=== PATIENT | female | born 1955 ===

== ENCOUNTER 2025-06-03 12:19 | Outpatient (AMB) | payer OTHER, SELFPAY ==
--- NOTE | 2025-06-03 12:50 | MHC.OFFVIS ---
Intake Visit Reasons: CIDP Allergies Penicillins Allergy (Unknown, Verified 05/13/25 09:09) Unknown Medication List - Last Reconciled 06/03/25 by Juan Carlos Robbins MD hydrochlorothiazide 25 mg PO DAILY prednisone 40 mg (2 x 20 mg) PO DAILY 30 days HPI Comments Details: No change in paresthesia and numbness after 4 months of Prednisone 40mg daily. Not impaired functionally. Daughters feel that her hands are stronger. Numbness has not changed. Some facial sensations have improved. Her sx started in Jun 2024 while?using a tractor for mulching leaves in her yard in early June 2024 and needed to over-reach?for the accelerator and had to hyperextend her right foot, and as she did that, she felt a bolt of electricity traveling from the foot all the way up her spine.? She was fine after that, but the next day she noticed that both her hands went numb and tingly with worsening of symptoms?over the next week. There was increasing numbness and tingling in both hands and all fingers,? weakness in the hands and burning sensation.? She also had some numbness and tingling in the bottoms of her feet, but the hand symptoms were more significant.? She called her PCP and was told to take arthritis medicines for a few days, which did not help.? She then went and saw the PCP who diagnosed her with carpal tunnel syndrome and referred her to the hand surgeon, , who sent her for nerve conduction studies that were done on 07/07/24. She was told she had extreme carpal tunnel syndrome and cubital tunnel syndrome bilaterally.? That report is not available at this time.? She also had an MRI of the brain which was unremarkable except for some nonspecific white matter hyperintensities.? On August 21, 2024,? she had a right carpal tunnel release and right ulnar nerve transposition.? Her symptoms have not improved at all.? The symptoms in the left hand continue and the numbness in the feet has moved up almost to the knees.? She also gets some vibratory sensation transiently going through both breasts. Some numbness in also felt in her lips and mouth and tip of nos eand some facial pain. Neck movement doesn't trigger any symptoms.? She's found it harder to walk and feels that her balance is impaired.? She is unsteady on her feet but has not fallen.? There's no history of neck injuries or previous neurological symptoms.? She had been taking B complex vitamin daily prior to onset of the symptoms.? She has no bladder and bowel control problems. [facility] Medical History (Updated 06/03/25 @ 12:55 by Juan Carlos Robbins MD) CIDP (chronic inflammatory demyelinating polyneuropathy) History of high blood pressure Review of Systems Const Details: ?Sleep:? Difficulty getting to sleepdenies.? Difficulty maintaining sleepdenies?.? Urge to move legsdenies.? Teeth grindingdenies.? Shouting or Kicking during sleepdenies.? Abnormal behavior during sleepdenies.? Excessive sleepdenies.? Snoringdenies.? Daytime sleepinessdenies. ???General/Constitutional:? Change in appetitedenies.? Chillsdenies.? Fatiguedenies.? Feverdenies.? Weight gaindenies.? Weight lossdenies. ???Ophthalmologic:? Blurred visiondenies.? Diminished visual acuitydenies. ???ENT:? Stuffinessdenies.? Decreased hearingdenies.? Dry mouthdenies.? Ear paindenies.? Nosebleeddenies.? Ringing in the earsdenies.? Sinus paindenies.? Sore throatdenies.? Swollen glandsdenies. ???Endocrine:? Cold intolerancedenies.? Excessive thirstdenies.? Frequent urinationdenies.? Heat intolerancedenies. ???Respiratory:? Shortness of breathdenies.? Chest paindenies.? Coughdenies. ???Breast:? Breast lumpdenies.? Nipple dischargedenies. ???Cardiovascular:? Chest pain at restdenies.? Chest pain with exertiondenies.? Claudicationdenies.? Dizzinessdenies.? Fluid accumulation in the legsdenies.? Irregular heartbeatdenies.? Palpitationsdenies. ???Gastrointestinal:? Abdominal paindenies.? Constipationdenies.? Diarrheadenies.? Difficulty swallowingdenies.? Heartburndenies.? Nauseadenies.? Rectal bleedingdenies. ???Hematology:? Easy bruisingdenies.? Prolonged bleedingdenies. ???Genitourinary:? Frequent urinationdenies.? Urgencydenies.? Incontinencedenies.? Erectile Dysfunctiondenies. ???Musculoskeletal:? Neck paindenies.? Back paindenies.? Muscle achesdenies.? Painful jointsdenies.? Sciaticadenies.? Weaknessdenies. ???Podiatric:? Difficulty walkingdenies.? Foot numbnessdenies. ???Neurologic:? Difficulty swallowingdenies.? Balance difficultyadmits.? Coordinationnormal.? Difficulty speakingdenies.? Dizzinessdenies.? Faintingdenies.? Gait abnormalityadmits.? Headachedenies.? Loss of strengthdenies.? Loss of use of extremitydenies.? Low back paindenies.? Memory lossdenies.? Seizuresdenies.? Ticsdenies.? Tingling/Numbnessadmits.? Transient loss of visiondenies.? Tremordenies. ???Psychiatric:? Anxietydenies.? Auditory/visual hallucinationsdenies.? Delusionsdenies.? Depressed mooddenies.? Stressorsdenies.? Substance abusedenies.? Suicidal thoughtsdenies. Physical Exam Neuro Other: Neurological: Abnormal neurological findings:??mild weakness in both deltoids graded at 5 minus/5.? Minimal weakness in abductor pollicis brevis on the right.? Well healed scar of carpal tunnel release and ulnar nerve transposition on the right.? Normal strength in the lower extremities.? Reflexes are absent throughout except for 1+ triceps reflex.? There is impaired vibration sensation in the hands and the feet particularly in the left lower extremity all the way up to the patella.? Position sense is impaired in the feet as well.? Pinprick and temperature sensation is preserved.? There is a mildly positive Romberg sign.? She walks with a broad-based gait looking slightly unsteady.? Plantar responses are flexor.?Mental Status:??alert and oriented X 3,?Normal attention, orientation, memory and affect.?Cranial Nerves:??Pupils are equal, round and reactive to light. Fundoscopy shows normal disc bilaterally. External occular muscles are intact. Visual mcacrthy are full, no ptosis. Face is symmetrical, no facial weakness or droop. Facial sensations are normal. Tongue protrudes in midline. Palate elevates symmetrically. Shoulder shrugging is normal..?Motor Examination:??Normal muscle tone, bulk and strength,?No atrophy or fasciculations,?No drift of the extended upper extremities,?Deep tendon reflexes are 2+?,?Plantars are flexor?.?Motor Strength:?Proximal Muscles (out of 5):5Distal Muscles (out of 5):5Neck Flexors (out of 5):5Neck Extensors (out of 5):5Deltoid (out of 5):5Biceps (out of 5):5Triceps (out of 5):5Serratus Anterior (out of 5):5Wrist Extensors (out of 5):5APB (out of 5):5Finger Spread (out of 5):5Ileopsoas (out of 5):5Quadriceps (out of 5):5Hamstrings (out of 5):5Tibialis Anterior (out of 5):5Peronei (out of 5):5EDB (out of 5):5Gastrocnemius (out of 5):5Straight Leg Raising:??90 degrees.?Sensory Exam:??Normal light touch, temperature, pinprick, vibration and joint-position sensations?,?Rhomberg sign is absent.?Coordination:??no ataxia,?no titubation,?wpqstq-zy-nrov, dptq-hajo-hill test and rapid alternating movements were normal.?Gait Exam:??Within normal limits.?Cerebellar Signs:??Ziuygl-bh-eufe and zmjc-xp-ouaz is normal,?no dysdiadochokinesia?.?Extrapyramidal System:??No tremor, rigidity with normal facial expressions,?No bradykinesia, no bradyphrenia. Normal arm swing and posture. No propulsion or retropulsion.?Speech:??Normal,?no dysphasia or dysarthria..? Mini Mental Status Exam: Level of Consciousness:??Alert.?Orientation:??Knows correct year, month, date, day and season,?Knows correct city, county and state. Knows correct location and floor.?Registration:??Able to register 3 objects.?Attention:??Serial 7's performed accurately.?Recall:??Able to recall 3 out of 3 objects.?Language:??Normal spontaneous speech, fluency, repetition,naming, comprehension, reading and writing.?Total Score:??30/30.? General Examination: GENERAL APPEARANCE:??normal,?in no acute distress.?HEAD:??normocephalic,?atraumatic.?EYES:??sclera non-icteric,?conjunctiva clear.?EARS:??auditory canal clear,?tympanic membrane intact, clear.?NOSE:??no lesions.?ORAL CAVITY:??gums normal,?mucosa moist,?no lesions.?THROAT:??clear.?NECK/THYROID:??no cervical lymphadenopathy,?thyroid normal,?neck supple, full range of motion,?no carotid bruit.?SKIN:??no rashes,?no significant birthmarks.?HEART:??S1, S2 normal,?no murmurs.?LUNGS:??clear anteriorly and posteriorly.?CHEST:??no gross rib deformity,?clear to auscultation.?BACK:??normal exam of spine.?EXTREMITIES:??no edema.?PERIPHERAL PULSES:??normal.?PSYCH:??alert, oriented,?cognitive function intact,?cooperative with exam.? Assessment & Plan Assessment & Plan (1) CIDP (chronic inflammatory demyelinating polyneuropathy): Comment: rule out B12 deficiency with peripheral neuropathy and subacute combined degeneration as well as conditions affecting posterior columns 01/13/25 NCV/EMG ALL Severe diffuse axonal and demyelinating neuropathy in the upper and lower extremities. EMG in the left C5-T1 and left L4-S1 innervated muscles is consistent with neuropathic changes. Labs normal. Code(s): G61.81 - Chronic inflammatory demyelinating polyneuritis Category: Medical (2) Cervical myelopathy: Comment: MRI brain and C spine were reviewed. Tight spinal canal at C5-6 without abnormal cord signal. Bilateral foraminal encroachment. Non specific white matter changes - microvacsular versus mild MS Code(s): G95.9 - Disease of spinal cord, unspecified Category: Medical (3) Peripheral neuropathy: Code(s): G62.9 - Polyneuropathy, unspecified Category: Medical Plan Continue Prednisone 40mg for 2 more months. Start IVIG 30gm daily for 4 days every month for 6 months. Medications: New immun glob [id number]-IgA 0-50 10 gram (Gammagard S-D (IgA < 1 mcg/mL)) to be infused 4 days monthly at same dose for 6 months 30 grams IV DAILY CIDP 4 days Refilled prednisone 40 mg (2 x 20 mg) PO DAILY 60 tabs 3RF 30 days Coding Level of Care Code Est Pt Level 4 (17602) Diagnoses CIDP (chronic inflammatory demyelinating polyneuropathy) G61.81 Cervical myelopathy G95.9 Peripheral neuropathy G62.9
--- OUTSIDE RECORDS SUMMARY | 2025-06-03 15:42 | XMS_ITS | Clinical Summary ---
Author Organization [facility] Address [address] [place] [address] Care Team Providers Care Woods Laborer Name Role Phone Dario Welch MD Primary Care Provider [phone] Immunizations Name Administration Dates Next Due Covid-19 (Pfizer) Dilution Required 05/27/2021,0 08/19/2020,07/29/2020 Social History Tobacco Use Types Packs/Day Years Used Date Smoking Tobacco: Never Assessed Sex and Gender Information Value Date Recorded Sex Assigned at Female 07/29/2020 9:48 AM EST Gender Identity Not on file Sexual Orientation Not on file Job Start Date Occupation Industry Not on file Not on file Not on file Plan of Treatment Health Maintenance Due Date Last Done Comments Hepatitis C Screening 1955 Depression Screening 1966 Preventative Health Evaluation 1972 DTap / Tdap / Td (1 - Tdap) 1973 Colon Cancer Screening (Colonoscopy) 1999 Breast Cancer Screening (Mammogram) 2004 Shingrix-Zoster Vaccine (1 o f 2) 2004 Fall Risk Assessment 2019 Osteoporosis Screening (DEXA Scan) 2019 Pneumococcal Vaccine (1 of 1 - PCV) 2019 COVID-19 Vaccine ( - 2024-2 6 season) 2025 05/27/2021, 08/19/2020, 07/29/2020 Influenza Vaccine (#1) 2025 RSV Adult > 60+ Yrs or (1 - 1-dose 75+ series) 2029 Hepatitis B Vaccines Aged Out No long er eligible based on patient's age to complete this topic RSV Ped < 20 months Aged Out No longe r eligible based on patient's age to complete this topic Care Teams Woods Laborer Relationship Specialty Start Date End Date Dario Welch MD [address] [facility] [address] [place] [address] PCP - General Lead Manufacturing Technician 05/25/15
--- OUTSIDE RECORDS SUMMARY | 2025-06-03 15:42 | XMS_ITS | Clinical Summary ---
Author [facility] Address [address] [place] [address] Care Team Providers Care Watch Technician Name Role Phone Dario Welch MD Primary Care Provider Unava ilable Social History Tobacco Use Types Packs/Day Years Used Date Smoking Tobacco: Never Assessed Comments Unknown Sex and Gender Information Value Date Recorded Sex Assigned at Not on file Legal Sex Female 9:47 PM EST Gender Identity Female 11/04/2024 2:35 PM EDT Sexual Orientation Straight 11/04/2024 2: 35 PM EDT Plan of Treatment Health Maintenance Due Date Last Done Comments Breast Cancer Screening 1955 Colorectal Cancer Screening: Colonoscopy 1955 Zoster Vaccines (1 of 2) 2004 Falls Risk Assessment 06/28/2024 Hepatitis C Screening 06/28/2024 Osteoporosis Screening (Bone Density Screening) 06/28/2024 Social Influencers of Health Screening 06/28/2024 Depression Screening 08/06/2024 COVID-19 Vaccine (4 - 2024-2 6 season) 2025 05/27/2021, 08/19/2020, 07/29/2020 Influenza Vaccine (#1) 2025 Cholesterol Screening (Lipid Panel) 07/13/2025 07/13/2020, 12/06/2018 DTaP,Tdap,and Td Vaccines (2 - Td or Tdap) 12/25/2028 12/25/2018 RSV Immunization Adult Patients (1 - 1-dose 75+ series) 2029 Pneumococcal Vaccine: 50+ Years Completed 07/07/2021, 06/29/2020 HIB Vaccines Aged Out No longer eligi ble based on patient's age to complete this topic HPV Vaccines Aged Out No longer eligi ble based on patient's age to complete this topic Hepatitis A Vaccines Aged Out No long er eligible based on patient's age to complete this topic Hepatitis B Vaccines Aged Out No long er eligible based on patient's age to complete this topic IPV Vaccines Aged Out No longer eligi ble based on patient's age to complete this topic MMR Vaccines Aged Out No longer eligi ble based on patient's age to complete this topic Meningococcal ACWY Vaccine Aged Out N o longer eligible based on patient's age to complete this topic Meningococcal B Vaccine Aged Out No l onger eligible based on patient's age to complete this topic RSV Immunization Patients Under 20 months Aged Out No longer eligible b ased on patient's age to complete this topic Varicella Vaccines Aged Out No longer eligible based on patient's age to complete this topic Care Teams Watch Technician Relationship Specialty Start Date End Date Dario Welch MD [address] [place] [id number] PCP - General Army Officer 05/25/15
== END 2025-06-03 13:17 | disposition home or self-care (01) ==
PROVIDERS: PCP Nurse Practitioner Primary Care; Visit Provider Psychiatry & Neurology Neurology
DX: G61.81 Chronic inflammatory demyelinating polyneuritis (principal); G95.9 Disease of spinal cord, unspecified; G62.9 Polyneuropathy, unspecified
CPT/HCPCS: 99214